=== PATIENT | female | born 1990 | race Two or more races ===

== ENCOUNTER 2017-06-09 09:33 | Outpatient (CLI) | payer OTHER ==
[2017-06-09] MEDS ORDERED: GADOBUTROL 7.5 MMOL/7.5 ML VIAL ONE (09:48)
[2017-06-09] MEDS ORDERED: GADOBUTROL 7.5 MMOL/7.5 ML VIAL IVP ONE (10:40)
--- NOTE | 2017-06-10 21:49 | MRI Report ---
EXAM: MRI BRAIN WITH AND WITHOUT CONTRAST COMPARISON: None. CLINICAL HISTORY: Benign neoplasm of brain. TECHNIQUE: Multiplanar multisequence imaging is performed through the head with and without 7.5 mL Gadavist. FINDINGS: Diffusion-weighted imaging shows no acute infarct. Gradient sequence shows no evident prior parenchymal hemorrhage. T2 FLAIR imaging shows minimal white matter T2 prolongation, no masses. Ventricular size is normal. T2 spin-echo imaging shows no posterior fossa masses. No prior posterior fossa infarct. Vascular flow voids are unremarkable. IACs are unremarkable. Fifth nerves are unremarkable. T1 precontrast 3-dimentional spoiled gradient sequence shows no abnormal elevated parenchymal T1 sign al. No developmental anomalies. Postcontrast T1 three-dimensional spoiled gradient sequence shows no abnormal parenchymal enhancement . No masses. Visualized orbits, paranasal sinuses and mastoids are unremarkable. No calvarial signal abnormality. Pituitary fossa, clivus and foramen magnum are unremarkable. IMPRESSION: Normal brain MRI. Referring Provider Line: [phone] SITE ID: [id number]
== END 2017-06-09 09:34 | disposition home or self-care (01) ==
LOC: DI 09:33
PROVIDERS: ATTEND Physician Assistant
DX: D33.2 Benign neoplasm of brain, unspecified (principal); R51 Headache
CPT/HCPCS: 70553; A9585

== ENCOUNTER 2020-01-02 20:43 | Outpatient (CLI) | payer OTHER | END 2020-01-02 20:44 | disposition EMS.NT | LOC: EMS 20:43 | PROVIDERS: ATTEND Surgery | DX: R05 Cough (principal); J02.9 Acute pharyngitis, unspecified ==